=== PATIENT | male | born 1945 | race American Indian/Alaskan Native ===

== ENCOUNTER 2017-05-03 07:38 | Day surgery (SDC) | payer MEDICARE ==
[2017-05-03 08:36] LABS: Basophils % (Auto) 0.8 % (0.0-1.8); Eosinophils % (Auto) 2.5 % (0.0-4.3); Hematocrit 39.1 % (35.5-45.6); Hemoglobin 13.4 gm/dl (11.8-15.2); Mean Corpuscular HGB Conc 34 % (32-34); Mean Corpuscular Hemoglobin 28 pg (28-32); Mean Corpuscular Volume 83 fl (84-94); Platelet Count 217 K/mm3 (140-440); Red Blood Count 4.72 M/mm3 (3.65-5.03); Red Cell Distribution Width 15.1 % (13.2-15.2); White Blood Count 9.7 K/mm3 (4.5-11.0)
[2017-05-03 08:48] LABS: INR 1.1 (0.87-1.13)
[2017-05-03] MEDS ORDERED: NACL 0.9% 500 ML 500 ML IV SCH (09:00)
[2017-05-03 09:08] LABS: Anion Gap 16 mmol/L; BUN/Creatinine Ratio 17.77; Blood Urea Nitrogen 16 mg/dL (9-20); Calcium 8.7 mg/dL (8.4-10.2); Carbon Dioxide 24 mmol/L (22-30); Chloride 104.1 mmol/L (98-107); Glucose 110 mg/dL (75-100); Sodium 140 mmol/L (137-145)
[2017-05-03] MEDS ORDERED: ECOTRIN PO ONE (10:00)
[2017-05-03] MEDS ORDERED: HEPARIN/NS 5000 UNIT/500ML(CATH LAB) 1,000 ML IR ONE (11:00)
[2017-05-03] MEDS ORDERED: XYLOCAINE 2% INFILTRATI ONE (11:01)
[2017-05-03] MEDS ORDERED: SUBLIMAZE ONE (11:02)
[2017-05-03] MEDS ORDERED: VERSED ONE (11:03)
--- NOTE | 2017-05-03 11:53 | Cardiac Catherization Report ---
REASON FOR PROCEDURE: The patient is a 72-year-old man, who underwent an outpatient thallium stress test that was abnormal, with a large mostly fixed inferior defect. He was recommended for cardiac catheterization. PROCEDURE: The patient was prepped and draped in a sterile fashion after informed consent. The right femoral artery was entered using Seldinger technique followed by placement of a 6-Romansh sheath. Selective left and right coronary angiography was performed using #4 right and left Jose catheters. A pigtail catheter was used for left ventricular angiography. The catheters were removed, sheath removed, and hemostasis achieved using an Angio-Seal device. The patient was returned to the postprocedure unit in stable condition. There were no complications. FINDINGS: HEMODYNAMICS: Left ventricle end diastolic pressure was 24, following coronary angiography. Ascending aortic pressure was 128/65. There was no significant pressure gradient on pullback across the aortic valve. CORONARY ANGIOGRAPHY: Left main coronary artery was free of significant disease. Mild irregularities of the mid LAD, otherwise this vessel and its diagonal branches were angiographically normal. A moderate to large ramus intermedius artery contained mild luminal irregularities. The circumflex artery and its obtuse marginal branches were free of significant disease. Right coronary artery was dominant. This vessel contained mild proximal narrowing, followed by mild irregularities of the mid segment. Otherwise, no significant lesions were noted in this system. There was normal left ventricular systolic function, ejection fraction 55%. CONCLUSION: 1. Mild irregularities as above, essentially angiographically near normal coronary arteries. 2. Well preserved left ventricular systolic function, ejection fraction 55%. RECOMMENDATION: Risk factor modification and medical therapy. [facility]# [id number] CA/NTS
--- NOTE | 2017-05-03 14:33 | Discharge Summary ---
Short Stay Discharge Plan Activity: advance as tolerated Weight Bearing Status: Partial Weight Bearing Diet: low fat, low cholesterol, low salt, diabetic Wound: keep clean and dry Special Instructions: no heavy lifting (3 days), hold Metformin (48 hrs only) Follow up with: ALBINO SINGH MD [Staff Physician] - 7 Days Forms: [place] PCI D/C Instructions
[2017-05-03 14:49] VITALS: BP 108/66
[2017-05-03] MEDS ORDERED: NACL 0.9% 1000 ML 1,000 ML IV SCH (15:00)
== END 2017-05-03 14:45 | disposition home or self-care (01) ==
LOC: CATHLABREC 07:38
PROVIDERS: ATTEND Internal Medicine Cardiovascular Disease
DX: R94.39 Abnormal result of other cardiovascular function study (principal); E11.39 Type 2 diabetes mellitus with other diabetic ophthalmic complication; H40.9 Unspecified glaucoma; I10 Essential (primary) hypertension; E78.5 Hyperlipidemia, unspecified; E66.9 Obesity, unspecified; Z68.35 Body mass index [BMI] 35.0-35.9, adult; Z79.899 Other long term (current) drug therapy; Z79.84 Long term (current) use of oral hypoglycemic drugs
CPT/HCPCS: 36415; 80048; 85025; 85610; 85730; 93005; 93010; 93458; C1760; J1644; J2250; J3010; J7040; Q9967